=== PATIENT | male | born 1950 | race Hispanic/Latino ===

== ENCOUNTER 2020-12-21 08:40 | Outpatient (CLI) | payer BC | END 2020-12-21 08:41 | disposition home or self-care (01) | LOC: TBSIIMAG 08:40 | PROVIDERS: ATTEND Nurse Practitioner Acute Care | DX: R56.9 Unspecified convulsions (principal); I67.89 Other cerebrovascular disease | CPT/HCPCS: 70553; 82565 ==

== ENCOUNTER 2023-07-15 10:49 | Emergency (ER) | payer BC, MEDICARE, OTHER, SELFPAY ==
[2023-07-15] MEDS ORDERED: Sodium Chloride 0.9% 100 ML ONE (11:05)
[2023-07-15] MEDS ORDERED: levETIRAcetam 500 MG (5 mL) VIAL ONE (11:05)
[2023-07-15 11:50] LABS: #Basophils Less than 0.03 10x3/uL (0.0-0.2); %Basophils 0.3 % (0.0-1.0); %Eosinophils 0.5 % (0.0-10.0); %Lymphocytes 12.4 % (21.0-51.0); %Neutrophils 80.5 % (42.0-75.0); Hematocrit 42.9 % (42.0-52.0); Hemoglobin 14.3 g/dL (14.0-18.0); Mean Corpuscular HGB CONC 33.3 g/dL (32.0-36.0); Mean Corpuscular Hemoglobin 31.3 pg (27.0-31.0); Mean Corpuscular Volume 93.9 fL (78.0-98.0); Mean Platelet Volume 11.8 fL (7.4-10.4); Platelet Count 143 10x3/uL (130-400); RBC Distribution Width 12.8 % (11.5-14.5); Red Blood Cell (RBC) Count 4.57 mill/uL (4.70-6.10)
[2023-07-15 12:07] LABS: Anion Gap 17 mmol/L (10-20); BUN (Urea Nitrogen) 12 mg/dL (8.4-25.7); Calc. Creatinine Clearance 0 mL/min (70-130); Calcium 9.3 mg/dL (7.8-10.44); Carbon Dioxide 21 mmol/L (23-31); Chloride 105 mmol/L (98-107); Estimated GFR 80; Glucose 103 mg/dL (80-115); Potassium 4.3 mmol/L (3.5-5.1); Sodium 139 mmol/L (136-145)
== END 2023-07-15 12:56 | disposition home or self-care (01) ==
LOC: ERS 10:49
DX: R56.9 Unspecified convulsions (principal); I10 Essential (primary) hypertension
CPT/HCPCS: 36415; 80048; 85025; 96365; J1953; J3490

== ENCOUNTER 2023-12-11 10:23 | Emergency (ER) | payer SELFPAY ==
[2023-12-11 10:47] LABS: #Basophils Less than 0.03 10x3/uL (0.0-0.2); %Basophils 0.3 % (0.0-1.0); %Eosinophils 1.3 % (0.0-10.0); %Monocytes 5.8 % (0.0-10.0); %Neutrophils 75.1 % (42.0-75.0); Hematocrit 36.9 % (42.0-52.0); Hemoglobin 12.6 g/dL (14.0-18.0); Mean Corpuscular HGB CONC 34.1 g/dL (32.0-36.0); Mean Corpuscular Hemoglobin 32.8 pg (27.0-31.0); Mean Corpuscular Volume 96.1 fL (78.0-98.0); Mean Platelet Volume 11.2 fL (7.4-10.4); Platelet Count 153 10x3/uL (130-400); Red Blood Cell (RBC) Count 3.84 mill/uL (4.70-6.10)
[2023-12-11 11:04] LABS: ALT (SGPT) 21 U/L (8-55); AST (SGOT) 30 U/L (5-34); Albumin 4.2 g/dL (3.4-4.8); Alkaline Phosphatase 90 U/L (40-110); Anion Gap 14 mmol/L (10-20); BUN (Urea Nitrogen) 13 mg/dL (8.4-25.7); Bilirubin, Total 0.7 mg/dL (0.2-1.2); Calc. Creatinine Clearance 0 mL/min (70-130); Calcium 9.2 mg/dL (7.8-10.44); Carbon Dioxide 21 mmol/L (23-31); Chloride 108 mmol/L (98-107); Estimated GFR 91; Globulin 2.9 g/dL (2.4-3.5); Glucose 101 mg/dL (83-110); Potassium 4.3 mmol/L (3.5-5.1); Protein, Total 7.1 g/dL (5.8-8.1); Sodium 139 mmol/L (136-145)
[2023-12-11] MEDS ORDERED: levETIRAcetam 500 MG (5 mL) VIAL ONE (12:05)
== END 2023-12-11 13:45 | disposition home or self-care (01) ==
LOC: ERS 10:23
DX: G40.909 Epilepsy, unspecified, not intractable, without status epilepticus (principal); I10 Essential (primary) hypertension
CPT/HCPCS: 36415; 70450; 80053; 84146; 85025; 93005; 96365; J1953